=== PATIENT | female | born 1950 | race African-American/Black ===

== ENCOUNTER 2018-10-02 05:09 | Day surgery (SDC) | payer OTHER ==
[2018-08-19 14:55] VITALS: BMI 39.6
--- NOTE | 2018-10-02 12:14 | HP ---
History & Physical Update - History History: No Change - Physical Physical: No Change - Assessment Assessment: No Change - Plan Plan: No Change (agree with H&P from 09/23/18 - for hysteroscopy D&C for post menopausal bleeding)
[2018-10-02] MEDS ORDERED: ONDANSETRON 4 MG/2 ML VIAL IVPUSH PRN (13:12)
[2018-10-02] MEDS ORDERED: PROMETHAZINE HCL 25 MG/1 ML VIAL IVPUSH PRN (13:12)
[2018-10-02] MEDS ORDERED: hydrALAZINE HCL 20 MG/ML VIAL IVPUSH ONE (13:13)
[2018-10-02] MEDS ORDERED: LACTATED RINGERS SOLUTION 1,000 ML IV SCH (13:15)
[2018-10-02] MEDS ORDERED: PROMETHAZINE HCL 25 MG/1 ML VIAL IVPB PRN (14:25)
[2018-10-02 15:25] VITALS: BP 147/80; PULSE 86; TEMP 98.4
--- NOTE | 2018-10-07 10:18 | PATH ---
Surgical Pathology Report Patient Name: MARIBEL RAMIREZ [facility]. Rec. #: [id number] /Age/Gender: 1950 (Age: 67) / F Account: [id number] Location: [facility] Taken: 10/02/2018 Received: 10/03/2018 Reported: 10/07/2018 Physicians: Mary Jane Fernández M.D. Specimen(s) Received ENDOMETRIAL CURETTINGS Clinical History Postmenopausal bleeding Final Diagnosis ENDOMETRIAL CURETTINGS: FRAGMENTS OF ENDOMETRIAL POLYP. SEPARATE WEAKLY PROLIFERATIVE ENDOMETRIAL TISSUE WITH FOCAL CILIATED TUBAL METAPLASIA. ENDOCERVICAL TISSUE WITH DILATED GLANDS. Electronically Signed Sanjuana Padron M.D. Gross Description Received in formalin labeled "endometrial curettings," is a 1.5 x 1.1 x 0.2 cm aggregate of kapoor-brown soft tissue fragments. The formalin is filtered and the specimen is entirely submitted in one cassette. /10/03/2018 saudi10/03/2018
--- NOTE | 2018-10-10 14:20 | OP ---
Operative Note - Note: Operative Date: 10/02/18 Pre-Operative Diagnosis: post menupausal bleeding Post-Operative Diagnosis: Same as Pre-op
--- NOTE | 2018-10-10 15:13 | OP ---
DATE OF OPERATION: 10/02/2018 PREOPERATIVE DIAGNOSIS: Postmenopausal bleeding. POSTOPERATIVE DIAGNOSIS: Postmenopausal bleeding, with endometrial polyp. SURGEON: Mary Jane Fernández DO LIBRARIAN SPECIAL COLLECTIONS: None. ANESTHESIA: LMA. ANESTHESIOLOGIST: Kenny Alvarez M.D. PROCEDURE PERFORMED: Dilatation and curettage. COMPLICATIONS: None. ESTIMATED BLOOD LOSS: Minimal. DISPOSITION: Stable to PACU. COUNTS: Sponge and instrument count correct. INDICATIONS: The patient is an 67-year-old female who had been seen in the office with complaints of postmenopausal bleeding off and on for many months. The patient had an endometrial biopsy at an outside institution, which was negative; however, the bleeding continued. So recommendation was for a hysteroscopy, dilatation and curettage. The patient signed consents for the procedure in the office. DESCRIPTION OF PROCEDURE: The patient was admitted to [facility] on October 02, 2018, where consents were reconfirmed. She was then taken back to the operating room, placed in the dorsal lithotomy position, and LMA anesthesia was administered. A hard time-out was performed. During the initial portion of the procedure, the patient was able to expel her LMA on her own. At this point, the anesthesiologist requested expedition of the procedure. Hysteroscopy was not performed, and a dilatation and sharp curettage was performed only. Specimens were sent to Pathology for permanent evaluation. Minimal bleeding was noted from the cervical os. She was awoken from anesthesia and recovering in the PACU after the procedure. MARY JANE FERNÁNDEZ DO /[id number]
== END 2018-10-02 15:15 | disposition home or self-care (01) ==
LOC: JASU-SURG 05:09
PROVIDERS: ATTEND Obstetrics & Gynecology
PROC: 0UDB7ZX Extraction of Endometrium, Via Natural or Artificial Opening, Diagnostic (ICD-10-PCS; principal; 2018-10-02 11:30)
DX: N95.0 Postmenopausal bleeding (principal); N84.0 Polyp of corpus uteri; I10 Essential (primary) hypertension; E11.9 Type 2 diabetes mellitus without complications; E66.9 Obesity, unspecified; Z68.39 Body mass index [BMI] 39.0-39.9, adult; G46.4 Cerebellar stroke syndrome
CPT/HCPCS: 86850; 86870; 86900; 86901; 86902; 88305-TC; 94760